=== PATIENT | female | born 1980 | race Caucasian/White ===

== ENCOUNTER 2018-01-15 17:54 | Emergency (ER) | payer SELFPAY ==
[~2018-01-15] VITALS: Ht 162.6 cm; Wt 74.4 kg
[2018-01-15] MEDS ORDERED: ONDANSETRON ODT 4 MG ONE (19:27)
[2018-01-15] MEDS ORDERED: PLEASE ENTER ALLERGIES MC SCH (19:30)
[2018-01-15] MEDS ORDERED: ONDANSETRON ODT 4 MG PO ONE (19:30)
[2018-01-15] MEDS ORDERED: SODIUM CHLORIDE 0.9% 1,000 ML IV ONE (19:34)
[2018-01-15 19:36] LABS: ALANINE AMINOTRANSFERASE 30 U/L (12-78); ALBUMIN 3.7 g/dL (3.4-5.0); ANION GAP 8 mmol/L (5-15); CALCIUM 8.7 mg/dL (8.5-10.1); CHLORIDE 108 mmol/L (98-107); CREATININE 0.74 mg/dL (0.55-1.02)
[2018-01-15 19:41] LABS: ALKALINE PHOSPHATASE 62 U/L (45-117); BILIRUBIN,TOTAL 0.3 mg/dL (0.2-1.0); TOTAL PROTEIN 7.3 g/dL (6.4-8.2)
[2018-01-15 19:43] LABS: MEAN CORPUSCULAR HEMOGLOBIN 18.4 pg (27.0-34.8); MEAN CORPUSCULAR HGB CONC 30.7 g/dL (32.4-35.8); MEAN PLATELET VOLUME 7.7 fL (7.4-10.4); PLATELET COUNT 581 x10^3/uL (130-400); RED BLOOD COUNT 5.05 x10^6/uL (3.82-5.3); RED CELL DISTRIBUTION WIDTH 20.5 % (9.6-15.2)
[2018-01-15] MEDS ORDERED: SODIUM CHLORIDE 0.9% 1,000ML IVBOLUS ONE (20:00)
[2018-01-15] MEDS ORDERED: SODIUM CHLORIDE FLUSH 10ML SYR IVF ONE (20:00)
[2018-01-15 20:02] LABS: BASOPHILS % (AUTO) 0 % (0-1); EOSINOPHILS # (AUTO) 0.07 x10^3/uL (0-0.4); EOSINOPHILS % (AUTO) 1 % (1-7); LYMPHOCYTES # (AUTO) 2.35 x10^3/uL (1-3.4); LYMPHOCYTES % (AUTO) 23 % (22-44); MONOCYTES # (AUTO) 0.38 x10^3/uL (0.2-0.8); MONOCYTES % (AUTO) 4 % (2-9); NEUTROPHILS # (AUTO) 7.49 x10^3/uL (1.8-6.8); NEUTROPHILS % (AUTO) 73 % (42-75)
[2018-01-15 20:03] LABS: MD MORPH REVIEW ONLY
[2018-01-15 20:05] LABS: ANISOCYTOSIS 2+; MICROCYTOSIS 2+
[2018-01-15 20:06] LABS: HYPOCHROMIA 2+; OVALOCYTES 2+; POLYCHROMASIA 1+
[2018-01-15 20:07] LABS: <PLATELET ESTIMATE> INCREASED; <PLT MORPHOLOGY> NORMAL PLT MORPH
[2018-01-15 20:29] LABS: ACETONE, SERUM Negative (Negative)
[2018-01-15 22:27] VITALS: BP 126/59
== END 2018-01-15 22:28 | disposition home or self-care (01) ==
LOC: ED 21:00
DX: K52.9 Noninfective gastroenteritis and colitis, unspecified (principal); E86.0 Dehydration; D50.0 Iron deficiency anemia secondary to blood loss (chronic); F17.200 Nicotine dependence, unspecified, uncomplicated
CPT/HCPCS: 36415; 74022; 80053; 82010; 83605; 83690; 84703; 85025; 96360; 96361; 99285; J7030; Q0162